=== PATIENT | female | born 1950 | race Caucasian/White ===

== ENCOUNTER → 2016-07-06 | Outpatient (CLI) | payer MEDICARE, OTHER | LOC: FIMAGING 07:19 | PROVIDERS: ATTEND Family Medicine | DX: I83.811 Varicose veins of right lower extremity with pain (principal) ==

== ENCOUNTER → 2016-08-24 | Day surgery (SDC) | payer OTHER ==
[~2016-08-24] MED LIST: IOPAMIDOL (ISOVUE-300) 100 ML BTL ONE; LIDO/EPI 1% **for epidural** 30 ML SDV ONE; NITROGLYCERIN 2% 1 GM PACKET ONE; SODIUM TETRADECYL SULFATE 60 MG/2 ML VIAL IV ONE
== END | disposition home or self-care (01) ==
LOC: FIMAGING 08:23
PROVIDERS: ATTEND Radiology Diagnostic Radiology
PROC: 065Y3ZZ Destruction of Lower Vein, Percutaneous Approach (ICD-10-PCS; principal; 2016-08-24)
PROC: 065P3ZZ Destruction of Right Saphenous Vein, Percutaneous Approach (ICD-10-PCS; principal; 2016-08-24)
PROC: 3E033TZ Introduction of Destructive Agent into Peripheral Vein, Percutaneous Approach (ICD-10-PCS; principal; 2016-08-24)
DX: I83.811 Varicose veins of right lower extremity with pain (principal); I87.2 Venous insufficiency (chronic) (peripheral)
CPT/HCPCS: Q9967